=== PATIENT | male | born 1955 | race Caucasian/White ===

== ENCOUNTER 2022-12-20 12:55 | Outpatient (CLI) | payer MEDICARE, OTHER, SELFPAY ==
--- NOTE | 2022-12-20 12:58 | DI.RAD.S_ITS ---
PROCEDURE: PAIN L/S FACET INJ/BLK 1ST ROD COMPARISON: [facility], MR, MR LUMBAR SPINE WITH/WITHOUT CONTRAST, 11/26/2022, 15:16. INDICATIONS: SPONDYLOSIS FINDINGS: Fluoroscopic spot filming was performed to verify placement of spinal needles on both sides at the L4, L5, and S1 levels, as labeled on the films. Appropriate location of the needle tips was confirmed by injection of iodinated contrast. IMPRESSION: Intraprocedural examination demonstrating appropriate positions of the needles. Dictated by: Nba Naqvi M.D. on 12/20/2022 at 14:15 Approved by: Nba Naqvi M.D. on 12/20/2022 at 14:15
[2022-12-20 13:10] VITALS: BP 142/72; PULSE 59; RESP 16; TEMP 36.4; O2SAT 100
[2022-12-20 14:00] VITALS: BP 132/68; PULSE 56; RESP 18; O2SAT 99
[2022-12-20] MEDS: IOPAMIDOL 15 ML VIAL 3 ML INJ (14:01)
[2022-12-20] MEDS: BUPIVACAINE 0.5% (PF) 10 ML VIAL 5 ML SUBCUT (14:02)
[2022-12-20 14:05] VITALS: BP 128/56; PULSE 57; RESP 16; O2SAT 99
[2022-12-20 14:10] VITALS: BP 128/60; PULSE 70; RESP 16; O2SAT 99
[2022-12-20 14:14] VITALS: BP 130/67; PULSE 56; RESP 16; O2SAT 99
[2022-12-20 14:20] VITALS: BP 155/73; PULSE 69; RESP 18; O2SAT 99
--- NOTE | 2022-12-20 14:36 | P.PCN_ITS ---
Date/Time/Diagnoses Date of procedure: 12/20/22 Time of procedure: 14:00 Procedure Notes Physician: Chao Shetty Total Fluoroscopy time (seconds): 16 Total sedation minutes: 0 Procedure in detail & Post-procedure care: Bilateral L3,4,5 Lumbar Medial Branch Blocks Indications: Pedro is referred by Dr. Box for treatment of lumbar spondylosis with low back pain. Preoperative diagnosis: bilateral lumbar spondylosis Postoperative diagnosis: Same Pre-procedure History: Patient demonstrates today moderate to severe non- radicular back pain without neurologic deficit aggravated by hyperextension yes Back pain greater than leg pain? yes Patient today has tenderness over the suspected joint(s) yes History of post-traumatic injury? yes Hypertrophic arthropathy yes Back pain associated with suspected motion segment instability, hypermobility or pseudoarthrosis no Pre-testing pain score (VAS): 7/10 Focused Examination: Ax3 Mood and affect are normal Vital Signs: VSS ASA: 2 Consent: Following review of allergies and potential side effects/complications, including, but not necessarily limited to, infection, allergic reaction, local tissue breakdown, stroke, temporary or permanent nerve injury, paralysis, and possible , the patient indicated that they understood and agreed to proceed.? An informed consent document was signed by the patient, witnessed by a nurse and placed in the patient's chart.? Additionally, other treatment options including medications and physical therapy were reviewed with the patient. All questions were answered. Site was then marked. Anesthesia: Local Position: Prone Monitoring: NIBP, Pulse oximetry, 3 lead EKG Needle used: 22G 3.5 inch spinal needle Contrast: Isovue 300M Injectate: 0.5% Bupivacaine 1 mL/site Procedure: The patient was brought into the procedure room and positioned into the prone position. Skin was prepped with a Chloraprep solution, allowed to air dry, and then draped in sterile fashion.? The right L3,4,5 levels were visually identified with fluoroscopy. Lidocaine 1% was used to anesthetize the skin over each target destination with a 22ga needle. A 25 ga, 3.5 inch spinal needle was advanced to the location of the medial branch at the junction of the superior articular process and the transverse process using intermittent fluoroscopy in the AP view. Isovue 300M contrast 0.2ml was injected at each level outlining the medial borders for each level and the base of the SAP of the sacrum in the AP and lateral views. There was no evidence of vascular or intrathecal uptake. The above injectate was slowly injected at each target destination. The above procedure was then repeated for the left L3,4,5 levels. At the end of the procedure the needles were withdrawn and Band-Aids were applied for a dressing. Post Procedure: Patient was taken to the recovery and monitored. The patient was provided a Pain Log to continue to record the patient's response to the target- specific procedure prior to the patient's follow-up visit with the referring physician. Patient was stable upon discharge. Detailed post procedure instructions were provided. Patient was asked to call in the event of worsening pain, fever, weakness, numbness or bladder or bowel incontinence. Postoperatively, today patient demonstrates the following changes with hyperextension and with tenderness over the suspected joint(s). Provacative testing using the Valdez's facet loading test Right side Left side Directly before the block ?VAS (0-10) = 7/10 VAS (0-10) = 7/10 5 minutes after the block VAS (0-10) = 1/10 VAS (0-10) = 1/10 Percentage relief obtained with this diagnostic block 86% 86% Any improved physical functioning directly after the blocks? ROM, walking Based on the medial branches blocked today, if the patient meets insurance criteria for radiofrequency, the treatment should result in the denervation of the bilateral L4-5 and L5-S1 facet joint nerves. We would expect to denervate a total of 4 facets during the radiofrequency ablation.
== END 2022-12-20 14:27 | disposition home or self-care (01) ==
LOC: RAD 12:58
PROVIDERS: PCP Family Medicine; Referring Provider Anesthesiology; Visit Provider Anesthesiology
DX: M47.816 Spondylosis without myelopathy or radiculopathy, lumbar region (principal)
CPT/HCPCS: 64493; 64494

== ENCOUNTER 2023-01-29 09:36 | Outpatient (CLI) | payer MEDICARE, OTHER, SELFPAY ==
--- NOTE | 2023-01-29 09:37 | DI.RAD.S_ITS ---
PROCEDURE: PAIN L/S FACET INJ/BLK 1ST ROD COMPARISON: [facility], , PAIN L/S FACET INJ/BLK 1ST ROD, 12/20/2022, 15:02. INDICATIONS: SPONDYLOSIS FINDINGS: Fluoroscopic spot filming was performed to verify placement of spinal needles on both sides at the L4, L5, and S1 levels, as labeled on the films. Appropriate location of the needle tips was confirmed by injection of iodinated contrast. IMPRESSION: Intraprocedural examination demonstrating appropriate positions of the needles. Dictated by: Nba Naqvi M.D. on 01/30/2023 at 14:00 Approved by: Nba Naqiv M.D. on 01/30/2023 at 14:00
[2023-01-29 09:45] VITALS: BP 138/61; PULSE 62; RESP 20; TEMP 36.7; O2SAT 100
[2023-01-29 09:58] VITALS: BP 135/97; PULSE 76; RESP 16; O2SAT 97
[2023-01-29] MEDS: IOPAMIDOL 15 ML VIAL 3 ML INJ (10:02)
[2023-01-29] MEDS: LIDOCAINE 2% INJ SDV 5ML 5 ML INJ (10:02)
[2023-01-29 10:03] VITALS: BP 123/58; PULSE 62; RESP 16; O2SAT 97
[2023-01-29 10:08] VITALS: BP 129/63; PULSE 62; RESP 16; O2SAT 97
[2023-01-29 10:13] VITALS: BP 136/64; PULSE 66; RESP 16; O2SAT 97
[2023-01-29 10:20] VITALS: BP 137/86; PULSE 74; RESP 18; O2SAT 99
--- NOTE | 2023-01-29 12:37 | P.PCN_ITS ---
Date/Time/Diagnoses Date of procedure: 01/29/23 Time of procedure: 10:00 Procedure Notes Physician: Chao Shetty Total Fluoroscopy time (seconds): 21 Total sedation minutes: 0 Procedure in detail & Post-procedure care: Bilateral L3,4,5 Lumbar Medial Branch Blocks Indications: Pedro presents for treatment of lumbar spondylosis with low back pain. Preoperative diagnosis: Bilateral lumbar spondylosis Postoperative diagnosis: Same Pre-procedure History: Patient demonstrates today moderate to severe non- radicular back pain without neurologic deficit aggravated by hyperextension Yes Back pain greater than leg pain? Yes Patient today has tenderness over the suspected joint(s) Yes History of post-traumatic injury? No Hypertrophic arthropathy Yes Back pain associated with suspected motion segment instability, hypermobility or pseudoarthrosis No Pre-testing pain score (VAS): 6/10 Focused Examination: Ax3 Mood and affect are normal Vital Signs: VSS ASA: 2 Consent: Following review of allergies and potential side effects/complications, including, but not necessarily limited to, infection, allergic reaction, local tissue breakdown, stroke, temporary or permanent nerve injury, paralysis, and possible , the patient indicated that they understood and agreed to proceed.? An informed consent document was signed by the patient, witnessed by a nurse and placed in the patient's chart.? Additionally, other treatment options including medications and physical therapy were reviewed with the patient. All questions were answered. Site was then marked. Anesthesia: Local Position: Prone Monitoring: NIBP, Pulse oximetry, 3 lead EKG Needle used: 25G 3.5 inch spinal needle Contrast: Isovue 300M Injectate: 2% Lidocaine 1 mL per site Procedure: The patient was brought into the procedure room and positioned into the prone position. Skin was prepped with a Chloraprep solution, allowed to air dry, and then draped in sterile fashion.? The right L4-5 and L5-S1 facet joints were visually identified with fluoroscopy. Lidocaine 1% was used to anesthetize the skin over each target destination with a 25ga needle. A 25 ga, 3.5 inch spinal needle was advanced to the location of the medial branch at the junction of the superior articular process and the transverse process at L3,4,5 using intermittent fluoroscopy in the AP view. Isovue 300M contrast 0.2ml was injected at each level outlining the medial borders for each level and the base of the SAP of the sacrum in the AP and lateral views. There was no evidence of vascular or intrathecal uptake. The above injectate was slowly injected at each target destination. The left L4-5 and L5-S1 facet joints were visually identified with fluoroscopy. Lidocaine 1% was used to anesthetize the skin over each target destination with a 25ga needle. A 22 ga, 3.5 inch spinal needle was advanced to the location of the medial branch at the junction of the superior articular process and the transverse process at L3,4,5 using intermittent fluoroscopy in the AP view. Isovue 300M contrast 0.2ml was injected at each level outlining the medial borders for each level and the base of the SAP of the sacrum in the AP and lateral views. There was no evidence of vascular or intrathecal uptake. The above injectate was slowly injected at each target destination. At the end of the procedure the needles were withdrawn and Band-Aids were applied for a dressing. At the end of the procedure the needles were withdrawn and Band-Aids were applied for a dressing. Post Procedure: Patient was taken to the recovery and monitored. The patient was provided a Pain Log to continue to record the patient's response to the target- specific procedure prior to the patient's follow-up visit with the referring physician. Patient was stable upon discharge. Detailed post procedure instructions were provided. Patient was asked to call in the event of worsening pain, fever, weakness, numbness or bladder or bowel incontinence. Postoperatively, today patient demonstrates the following changes with hyperextension and with tenderness over the suspected joint(s). Provacative testing using the Valdez's facet loading test Right side Left side Directly before the block ?VAS (0-10) = 6/10 VAS (0-10) = 6/10 5 minutes after the block VAS (0-10) = 0/10 VAS (0-10) = 0/10 Percentage relief obtained with this diagnostic block 100% 100% Any improved physical functioning directly after the blocks? ROM Based on the medial branches blocked today, if the patient meets insurance criteria for radiofrequency, the treatment should result in the denervation of the bilateral L4-5 and L5-S1 facet joint nerves. We would expect to denervate a total of 4 facets during the radiofrequency ablation.
== END 2023-01-29 10:39 | disposition home or self-care (01) ==
LOC: RAD 09:37
PROVIDERS: PCP Family Medicine; Referring Provider Anesthesiology; Visit Provider Anesthesiology
DX: M47.816 Spondylosis without myelopathy or radiculopathy, lumbar region (principal)
CPT/HCPCS: 64493; 64494

== ENCOUNTER 2023-02-19 12:28 | Outpatient (CLI) | payer MEDICARE, OTHER, SELFPAY ==
[2023-02-19] VITALS (10 sets, daily range): BP systolic 126–166; BP diastolic 66–83; PULSE 54–77; RESP 14–19; TEMP 36.5; O2SAT 97–99
--- NOTE | 2023-02-19 12:30 | DI.RAD.S_ITS ---
PROCEDURE: PAIN L/S MED/LAT N RFA BILAT INDICATIONS: SPONDYLOSIS COMPARISON: None. FINDINGS: Fluoroscopic spot filming was performed to verify placement of spinal needles at the bilateral L3-L4, L4-L5 and L5-S1 periforaminal level(s), as labeled on the films. Appropriate location(s) of the needle tip(s) was confirmed by injection of iodinated contrast. IMPRESSION: Access needles at the bilateral L3-L4, L4-L5 and L5-S1 doreen-foraminal levels for bilateral L3, L4 and L5 medial branch block. Dictated by: Brianna Jansen MD, PhD on 02/19/2023 at 15:03 Approved by: Brianna Jansen MD, PhD on 02/19/2023 at 15:04
[2023-02-19] MEDS: BUPIVACAINE 0.5% (PF) 10 ML VIAL 5 ML INJ (13:01)
[2023-02-19] MEDS: LIDOCAINE 2% INJ MDV 20ML 20 ML INJ (13:02)
[2023-02-19] MEDS: DEXAMETHASONE 10 MG/ML VIAL 20 MG INJ (13:02)
--- NOTE | 2023-02-19 14:30 | P.PCN_ITS ---
Date/Time/Diagnoses Date of procedure: 02/19/23 Time of procedure: 13:00 Procedure Notes Physician: Chao Shetty Total Fluoroscopy time (seconds): 25 Total sedation minutes: 0 Procedure in detail & Post-procedure care: Bilateral L3, 4, 5 Lumbar Medial Branch Radio Frequency Ablation Indications: Pedro presents for treatment of lumbar spondylosis with low back pain. Preoperative diagnosis: Bilateral lumbar spondylosis Postoperative diagnosis: Same Pre-procedure History: Patient demonstrates today moderate to severe non-radicular low back pain without neurologic deficit aggravated by hyperextension yes Back pain greater than leg pain? yes Patient today has tenderness over the suspected joint(s) yes History of post-traumatic injury? no Hypertrophic arthropathy yes Back pain associated with suspected motion segment instability, hypermobility or pseudoarthrosis no Focused Examination: Ax3 Mood and affect are normal Vital Signs: VSS ASA: 2 Consent: Following review of allergies and potential side effects/complications, including, but not necessarily limited to, infection, allergic reaction, local tissue breakdown, stroke, temporary or permanent nerve injury, paralysis, and possible , the patient indicated that they understood and agreed to proceed.? An informed consent document was signed by the patient, witnessed by a nurse and placed in the patient's chart.? Additionally, other treatment options including medications and physical therapy were reviewed with the patient. All questions were answered. Site was then marked. Position: Prone Monitoring: NIBP, Pulse oximetry, 3 lead EKG Needle used: 18 guage, 100 mm, 10 mm active tip Anesthesia: Local Procedure: The patient was brought into the procedure room and positioned into the prone position. Skin was prepped with a Chloraprep solution, allowed to air dry, and then draped in sterile fashion.? The right L4-5 and L5-S1 facet joints were visually identified with fluoroscopy. Lidocaine 1% was used to anesthetize the skin over each target destination with a 25ga needle. An 18 ga, 100 mm RFA needle with a 10 mm active tip was advanced to the location of the medial branch at the junction of the superior articular process and the transverse process at L3,4,5 using intermittent fluoroscopy in the oblique view with caudal tilt. AP and lateral radiographs were taken to confirm proper needle placement. No paresthesias were noted. The stylet was removed and the radiofrequency probe was inserted through the cannula. Each level was individually tested. The impedance was between 300 and 800 ohms at all levels.? Motor stimulation up to 2V elicited multifidus twitching in the lumbar spine. There was no motor stimulation in the lower extremities. After negative aspiration, 1ml of 2% lidocaine was injected at each of the levels and radiofrequency denervation carried out using 80 degrees Celsius for 90 seconds. The needles were then rotated 90 degrees and a second ablation was performed at 80 degrees Celsius for 90 seconds. After ablation, a mixture of 10 mg dexamethasone with 0.25% bupivacaine 5 mL was injected in equal amounts among the sites (1 mL per site). Next, the left L4-5 and L5-S1 facet joints were visually identified with fluoroscopy. Lidocaine 1% was used to anesthetize the skin over each target destination with a 25ga needle. An 18 ga, 100 mm RFA needle with a 10 mm active tip was advanced to the location of the medial branch at the junction of the superior articular process and the transverse process at L3,4,5 using intermittent fluoroscopy in the oblique view with caudal tilt. AP and lateral radiographs were taken to confirm proper needle placement. No paresthesias were noted. The stylet was removed and the radiofrequency probe was inserted through the cannula. Each level was individually tested. The impedance was between 300 and 800 ohms at all levels.? Motor stimulation up to 2V elicited multifidus twitching in the lumbar spine. There was no motor stimulation in the lower extremities. After negative aspiration, 1ml of 2% lidocaine was injected at each of the levels and radiofrequency denervation carried out using 80 degrees Celsius for 90 seconds. The needles were then rotated 90 degrees and a second ablation was performed at 80 degrees Celsius for 90 seconds. After ablation, a mixture of 10 mg dexamethasone with 0.25% bupivacaine 5 mL was injected in equal amounts among the sites (1 mL per site). At the end of the procedure the needles were withdrawn and Band-Aids were applied for a dressing. This procedure is expected to denervate the bilateral L4-5 and L5-S1 facet joints. Post Procedure: Patient was taken to the recovery and monitored. The patient was provided a Pain Log to continue to record the patient's response to the target- specific procedure prior to the patient's follow-up visit with the referring physician. Patient was stable upon discharge. Detailed post procedure instructions were provided. Patient was asked to call in the event of worsening pain, fever, weakness, numbness or bladder or bowel incontinence. Complications: None
== END 2023-02-19 13:43 | disposition home or self-care (01) ==
PROVIDERS: PCP Family Medicine; Referring Provider Anesthesiology; Visit Provider Anesthesiology
DX: M47.816 Spondylosis without myelopathy or radiculopathy, lumbar region (principal)
CPT/HCPCS: 64635; 64636; J1100; J2250

== ENCOUNTER 2023-05-22 07:23 | Outpatient (CLI) | payer MEDICARE, OTHER, SELFPAY ==
--- NOTE | 2023-05-22 07:24 | DI.RAD.S_ITS ---
PROCEDURE: PAIN L INTERLAMINAR/CAUDAL INJ INDICATIONS: SPONDYLOSIS COMPARISON: [facility], , PAIN L/S MED/LAT N RFA BILAT, 02/19/2023, 12:57. FINDINGS: Fluoroscopic spot filming was performed to verify placement of a spinal needle at the L4-L5 level, as labeled on the films. Appropriate location of the needle tip was confirmed by injection of iodinated contrast. IMPRESSION: Intraprocedural examination within normal limits. Dictated by: Nba Naqvi M.D. on 05/22/2023 at 12:50 Approved by: Nba Naqvi M.D. on 05/22/2023 at 12:50
[2023-05-22 07:50] VITALS: BP 126/69; PULSE 53; RESP 16; TEMP 36.5; O2SAT 97
[2023-05-22 08:12] VITALS: BP 128/58; PULSE 67; RESP 16; O2SAT 97
[2023-05-22] MEDS: IOPAMIDOL 15 ML VIAL 3 ML INJ (08:13)
[2023-05-22] MEDS: DEXAMETHASONE 10 MG/ML VIAL INJ (08:13)
[2023-05-22 08:17] VITALS: BP 112/55; PULSE 53; RESP 14; O2SAT 97
[2023-05-22 08:22] VITALS: BP 112/56; PULSE 55; RESP 14; O2SAT 98
[2023-05-22 08:28] VITALS: BP 133/69; PULSE 65; RESP 18; O2SAT 96
--- NOTE | 2023-05-22 12:15 | P.PCN_ITS ---
Date/Time/Diagnoses Date of procedure: 05/22/23 Time of procedure: 08:00 Procedure Notes Physician: Chao Shetty Total Fluoroscopy time (seconds): 17 Total sedation minutes: 0 Procedure in detail & Post-procedure care: L4-5 Interlaminar Epidural Steroid Injection Indications: Pedro is presenting for treatment of lumbar radiculopathy with low back and leg pain. Preoperative diagnosis: Lumbar radiculopathy Postoperative diagnosis: Same Focused Examination: Ax3 Mood and affect are normal Vital Signs: VSS Consent: Following review of allergies and potential side effects/complications, including, but not necessarily limited to, infection, allergic reaction, local tissue breakdown, stroke, temporary or permanent nerve injury, paralysis, and possible , the patient indicated that they understood and agreed to proceed.? An informed consent document was signed by the patient, witnessed by a nurse and placed in the patient's chart.? Additionally, other treatment options including medications and physical therapy were reviewed with the patient. All questions were answered. Site was then marked. Anesthesia: Local Position: Prone Monitoring: NIBP, Pulse oximetry, 3 lead EKG Needle used: 18 G 3.5? Tuohy Contrast: Isovue 300M Injectate: Dexamethasone 10 mg with 1% lidocaine 2 mL Technique: The skin was prepped with chloraprep and then draped in a sterile fashion. Time out was performed as per protocol. Oxygen applied via NC. Skin and subcutaneous structures of the needle entry site was then infiltrated with 3 mL of lidocaine 1%. Under AP, lateral and contralateral oblique fluoroscopic control, the Tuohy needle was guided into the L4-5 epidural space. The space was accessed with loss of resistance technique. Isovue 300M was then injected and the spread was consistent with the epidural space. There was no evidence for intravascular or intrathecal uptake. After negative aspiration, the above- mentioned injectate was then slowly administered and the needle withdrawn. The patient expressed no unusual discomfort or paresthesias during the injection. Band-Aids applied to injection sites. EBL: less than 1 ml Complications: None Post Procedure: Patient was taken to the recovery and monitored. The patient was provided a Pain Log to continue to record the patient's response to the target- specific procedure prior to the patient's follow-up visit with the referring physician. Patient was stable upon discharge. Detailed post procedure instructions were provided. Patient was asked to call in the event of worsening pain, fever, weakness, numbness or bladder or bowel incontinence.
== END 2023-05-22 08:38 | disposition home or self-care (01) ==
LOC: RAD 07:24
PROVIDERS: Referring Provider Anesthesiology; Visit Provider Anesthesiology
DX: M54.16 Radiculopathy, lumbar region (principal)
CPT/HCPCS: 62323; J1100

== ENCOUNTER 2023-08-19 07:36 | Outpatient (CLI) | payer MEDICARE, OTHER, SELFPAY ==
--- NOTE | 2023-08-19 07:37 | DI.RAD.S_ITS ---
PROCEDURE: PAIN L INTERLAMINAR/CAUDAL INJ INDICATIONS: SPONDYLOSIS COMPARISON: [facility], XA, PAIN L INTERLAMINAR/CAUDAL INJ, 05/22/2023, 8:12. FINDINGS: Fluoroscopic spot filming was performed to verify placement of spinal needles at the L4-5 level, as labeled on the films. Appropriate location of the needle tip was confirmed by injection of iodinated contrast. IMPRESSION: Intraprocedural examination demonstrates appropriate needle position. Approved by: Mauro Johnson M.D. on 08/19/2023 at 15:54
[2023-08-19 07:49] VITALS: BP 114/58; PULSE 62; RESP 16; TEMP 36.2; O2SAT 97
[2023-08-19 08:10] VITALS: BP 120/56; PULSE 58; RESP 8; O2SAT 97
[2023-08-19 08:15] VITALS: BP 120/59; PULSE 52; RESP 9; O2SAT 99
[2023-08-19] MEDS: DEXAMETHASONE 10 MG/ML VIAL INJ (08:15)
[2023-08-19] MEDS: iopamidoL 15 ML VIAL 3 ML INJ (08:15)
[2023-08-19 08:18] VITALS: BP 110/56; PULSE 64; RESP 11; O2SAT 99
[2023-08-19 08:22] VITALS: BP 123/59; PULSE 72; RESP 16; O2SAT 100
--- NOTE | 2023-08-19 12:13 | P.PCN_ITS ---
Date/Time/Diagnoses Date of procedure: 08/19/23 Time of procedure: 08:00 Procedure Notes Physician: Chao Shetty Total Fluoroscopy time (seconds): 16 Total sedation minutes: 0 Procedure in detail & Post-procedure care: L4-5 Interlaminar Epidural Steroid Injection Indications: Pedro is presenting for treatment of lumbar radiculopathy with low back and leg pain. Preoperative diagnosis: Lumbar radiculopathy Postoperative diagnosis: Same Focused Examination: Ax3 Mood and affect are normal Vital Signs: VSS ASA: 2 Consent: Following review of allergies and potential side effects/complications, including, but not necessarily limited to, infection, allergic reaction, local tissue breakdown, stroke, temporary or permanent nerve injury, paralysis, and possible , the patient indicated that they understood and agreed to proce ed.? An informed consent document was signed by the patient, witnessed by a nurse and placed in the patient's chart.? Additionally, other treatment options including medications and physical therapy were reviewed with the patient. All questions were answered. Site was then marked. Anesthesia: Local Position: Prone Monitoring: NIBP, Pulse oximetry, 3 lead EKG Needle used: 18 G 3.5? Tuohy Contrast: Isovue 300M Injectate: Dexamethasone 10 mg with 1% lidocaine 2 mL Technique: The skin was prepped with chloraprep and then draped in a sterile fashion. Time out was performed as per protocol. Oxygen applied via NC. Skin and subcutaneous structures of the needle entry site was then infiltrated with 3 mL of lidocaine 1%. Under AP, lateral and contralateral oblique fluoroscopic control, the Tuohy needle was guided into the L4-5 epidural space. The space was accessed with loss of resistance technique. Isovue 300M was then injected and the spread was consistent with the epidural space. There was no evidence for intravascular or intrathecal uptake. After negative aspiration, the above- mentioned injectate was then slowly administered and the needle withdrawn. The patient expressed no unusual discomfort or paresthesias during the injection. Band-Aids applied to injection sites. EBL: less than 1 ml Complications: None Post Procedure: Patient was taken to the recovery and monitored. The patient was provided a Pain Log to continue to record the patient's response to the target- specific procedure prior to the patient's follow-up visit with the referring physician. Patient was stable upon discharge. Detailed post procedure instructions were provided. Patient was asked to call in the event of worsening pain, fever, weakness, numbness or bladder or bowel incontinence.
== END 2023-08-19 08:25 | disposition home or self-care (01) ==
LOC: RAD 07:37
PROVIDERS: Referring Provider Anesthesiology; Visit Provider Anesthesiology
DX: M54.16 Radiculopathy, lumbar region (principal)
CPT/HCPCS: 62323; J1100